=== PATIENT | male | born 1970 | race Caucasian/White ===

== ENCOUNTER 2019-12-20 12:07 | Emergency (ER) | payer OTHER ==
--- NOTE | 2019-12-20 13:17 | Emergency Department Report ---
- General Chief Complaint: Laceration/Recheck/Suture Stated Complaint: LFT PINKY REMOVE STITCHS Time Seen by Provider: 12/20/19 12:58 Source: patient Mode of arrival: Ambulatory Limitations: No Limitations - History of Present Illness Initial Comments: Patient is a 49-year-old male who presents emergency room with complaints of a wound recheck. Patient was evaluated in the emergency department on 12/13/2019 at that time he had a crush injury of his left pinky with an open fracture of the distal tuft. Patient states that he has not yet been able to see an orthopedic because he is going through [employer]. He states that he is supposed to get it resolved on Sunday (12/22/2019). He had sutures placed at that time. He denies any fever, drainage, increased pain. He states that he was given a tetanus immunization while in the emergency department. He denies any past medical history or allergies to medications. - Related Data Previous Rx's Medication Instructions Recorded Last Taken Type Acetaminophen with Codeine 1 tab PO Q6HR #12 tab 12/13/19 Unknown Rx [Acetaminophen-Codeine #4 TAB] cephALEXin [Keflex] 500 mg PO Q6HR #40 capsule 12/13/19 Unknown Rx Allergies Allergy/AdvReac Type Severity Reaction Status Date / Time No Known Allergies Allergy Unverified 12/13/19 14:47 ED Review of Systems ROS: Stated complaint: LFT PINKY REMOVE STITCHS Other details as noted in HPI Comment: All other systems reviewed and negative ED Past Medical Hx - Past Medical History Previous Medical History?: No - Surgical History Past Surgical History?: No - Social History Smoking Status: Never Smoker Substance Use Type: None - Medications Home Medications: Home Medications Medication Instructions Recorded Confirmed Last Taken Type Acetaminophen with Codeine 1 tab PO Q6HR #12 tab 12/13/19 Unknown Rx [Acetaminophen-Codeine #4 TAB] cephALEXin [Keflex] 500 mg PO Q6HR #40 capsule 12/13/19 Unknown Rx ED Physical Exam - General Limitations: No Limitations General appearance: alert, in no apparent distress - Head Head exam: Present: atraumatic, normocephalic - Eye Eye exam: Present: normal appearance - ENT ENT exam: Present: mucous membranes moist - Extremities Exam Extremities exam: Present: other (wound appears clean and dry present to the left distal pinky, no drainage, no increased warmth, no erythema, neurovascularly intact, there are sutures in place which appear consistent with a vicryl suture which is absorbable, no signs of infection) - Neurological Exam Neurological exam: Present: alert, oriented X3 - Psychiatric Psychiatric exam: Present: normal affect, normal mood - Skin Skin exam: Present: warm, dry ED Course Vital Signs 12/20/19 12:15 Temperature 98.1 F Pulse Rate 69 Respiratory 18 Rate Blood Pressure 112/68 O2 Sat by Pulse 98 Oximetry ED Medical Decision Making - Medical Decision Making Patient is a 49-year-old male who presents emergency room with complaints of a wound recheck. Patient was evaluated in the emergency department on 12/13/2019 at that time he had a crush injury of his left pinky with an open fracture of the distal tuft. Patient states that he has not yet been able to see an orthopedic because he is going through [employer]. He states that he is supposed to get it resolved on Sunday (12/22/2019). He had sutures placed at that time. He denies any fever, drainage, increased pain. He states that he was given a tetanus immunization while in the emergency department. He denies any past medical history or allergies to medications. vitals are normal. on exam: wound appears clean and dry present to the left distal pinky, no drainage, no increased warmth, no erythema, neurovascularly intact, there are sutures in place which appear consistent with a vicryl suture which is absorbable, no signs of infection. area cleaned with antibacterial soap and water by nurse and sterile dressing placed and splint placed and pt remained neurovascularly intact. advised pt Please keep area clean, dry, covered. Please keep splint on. Please follow-up with an orthopedic doctor. It is very important that he follow-up with orthopedic doctor. Return the emergency room for any new or worsening symptoms. Critical care attestation.: If time is entered above; I have spent that time in minutes in the direct care of this critically ill patient, excluding procedure time. ED Disposition Clinical Impression: Encounter for wound re-check Disposition: - TO HOME OR SELFCARE Is pt being admited?: No Does the pt Need Aspirin: No Condition: Stable Instructions: Finger Fracture (ED) Additional Instructions: Please keep area clean, dry, covered. Please keep splint on. Please follow-up with an orthopedic doctor. It is very important that he follow-up with orthopedic doctor. Return the emergency room for any new or worsening symptoms. Referrals: your, orthopedic doctor [Other] - 2-3 Days Time of Disposition: 13:16 Print Language: [place] K[place]
[2019-12-20 13:34] VITALS: BP 112/68
== END 2019-12-20 13:37 | disposition home or self-care (01) ==
LOC: ED 12:07
DX: S62.637D Displaced fracture of distal phalanx of left little finger, subsequent encounter for fracture with routine healing (principal); Z51.89 Encounter for other specified aftercare; Z79.899 Other long term (current) drug therapy; X58.XXXD Exposure to other specified factors, subsequent encounter